=== PATIENT | female | born 1970 | race Caucasian/White ===

== ENCOUNTER 2017-03-26 20:50 | Emergency (ER) | payer MEDICAID ==
[~2017-03-26] VITALS: Wt 57.5 kg
[2017-03-26 23:07] LABS: ADD SCAN DIFF NO
[2017-03-26 23:09] LABS: ADD UMIC YES; URINE BILIRUBIN (Dip) NEGATIVE (NEGATIVE); URINE BLOOD (Dip) TRACE (NEGATIVE); URINE COLOR LT. YELLOW (YELLOW); URINE GLUCOSE (Dip) NEGATIVE (NEGATIVE); URINE KETONES (Dip) NEGATIVE (NEGATIVE); URINE LEUKOCYTE ESTERASE (Dip) NEGATIVE (NEGATIVE); URINE NITRITE (Dip) NEGATIVE (NEGATIVE); URINE TOTAL PROTEIN (Dip) NEGATIVE (NEGATIVE); URINE UROBILINOGEN (Dip) 0.2 E.U./dL (0.1-1.0)
[2017-03-26 23:11] LABS: ABNORMAL IP MESSAGE 1; BASOPHILS % 0.6 % (0.0-2.0); EOSINOPHILS # 0.3 10^3/ul (0.0-0.5); EOSINOPHILS % 4.7 % (0.0-7.0); HEMATOCRIT 30.5 % (37.0-47.0); LYMPHOCYTES # 2.5 10^3/ul (0.8-2.9); LYMPHOCYTES % 38.1 % (15.0-51.0); MEAN CORPUSCULAR HEMOGLOBIN 20.8 pg (29.0-33.0); MEAN CORPUSCULAR HGB CONC 29.5 g/dl (32.0-37.0); MEAN CORPUSCULAR VOLUME 70.6 fl (82.0-101.0); MEAN PLATELET VOLUME 9.7 fl (7.4-10.4); MONOCYTE # 0.5 10^3/ul (0.3-0.9); MONOCYTES % 6.8 % (0.0-11.0); NEUTROPHIL # 3.3 10^3/ul (1.6-7.5); NEUTROPHILS % 49.6 % (39.0-77.0); PLATELET COUNT 400 10^3/UL (140-415); RED BLOOD COUNT 4.32 10^6/ul (4.20-5.40); RED CELL DISTRIBUTION WIDTH 25.6 % (11.5-14.5); WHITE BLOOD COUNT 6.6 10^3/ul (4.8-10.8)
[2017-03-26 23:16] LABS: URINE RBCS 0-2 /HPF (0)
[2017-03-26 23:17] LABS: BACTERIA,URINE OCCASIONAL
[2017-03-26 23:30] LABS: ALBUMIN 4.1 g/dl (3.3-4.9); ALBUMIN/GLOBULIN RATIO 1.07; CALCIUM 9.5 mg/dl (8.4-10.2); CREATININE 0.86 mg/dl (0.44-1.00); POTASSIUM 3.6 mmol/L (3.5-5.1); TOTAL PROTEIN 7.9 g/dl (6.1-8.1)
[2017-03-26] MEDS ORDERED: FER325 PO (23:43)
--- NOTE | 2017-03-27 | ERD ---
ER Documentation Chief Complaint Date/Time DATE: 03/26/17 TIME: 23:55 Chief Complaint NUMBNESS TO HANDS/GENERALIZED WEAKNESS/FATIGUE HPI This is a 46-year-old female presents to the ER with multiple complaints. Patient states that she has had a past medical history of anemia for the last 2 years. She is now stating that she feels as if she has worsening anemia because she feels more weak. Patient states that she is also having bilateral hand numbness and tingling. She denies any pain to her upper extremities. She denies any weaknesses in her hands. Numbness is intermittent. She has not had any trauma to the area. She denies any headaches, loss of consciousness, lower extremity weakness. Patient denies any fevers or chills. She denies any recent cough or cold symptoms. She denies nausea vomiting or diarrhea. She denies urinary frequency or dysuria. ROS 12 point review of systems was done, all negative except per HPI. Medications Home Meds Active Scripts Ferrous Sulfate* (Ferrous Sulfate*) 325 Mg Tabec, 325 MG PO BID for 30 Days, TAB Prov:LEVI WATTS 03/26/17 Allergies Allergies: Coded Allergies: No Known Allergy (Unverified , 03/26/17) PMhx/Soc History of Surgery: Yes (c/s x3) Anesthesia Reaction: No Hx Neurological Disorder: No Hx Respiratory Disorders: No Hx Cardiac Disorders: No Hx Psychiatric Problems: No Hx Miscellaneous Medical Probl: No Hx Alcohol Use: No Hx Substance Use: No Hx Tobacco Use: No Physical Exam Vitals Vital Signs Date Time Temp Pulse Resp B/P Pulse Ox O2 Delivery O2 Flow Rate FiO2 03/26/17 20:54 99.3 69 18 163/77 97 Physical Exam GENERAL: The patient is well developed and appropriate for usual state of health , in no apparent distress. HEENT: Atraumatic. Conjunctivae are pink. Pupils equal, round, and reactive to light. Extraocular muscles are grossly intact. CHEST: Clear to auscultation bilaterally. There are no rales, wheezes or rhonchi. HEART: Regular rate and rhythm. No murmurs, clicks, rubs or gallops. EXTREMITIES: Equal pulses bilaterally. There is no peripheral clubbing, cyanosis or edema. No focal swelling or erythema. Full range of motion. Grossly neurovascularly intact. Patient is neurovascularly intact to bilateral hands to the radial ulnar and median nerves. Normal strength and sensations. Patient is not tender to palpation to the bilateral hands or wrists. NEURO: Alert and oriented. Cranial nerves II through XII are intact. Motor strength in all 4 extremities with 5/5 strength. Sensation grossly intact. Normal speech and gait. SKIN: The skin is warm and dry. Result Diagram: 03/26/17 2212 03/26/17 2212 Results 24 hrs Laboratory Tests Test 03/26/17 22:10 03/26/17 22:12 Urine Color LT. YELLOW Urine Clarity CLEAR Urine pH 5.5 Urine Specific Bartley 1.020 Urine Ketones NEGATIVE Urine Nitrite NEGATIVE Urine Bilirubin NEGATIVE Urine Urobilinogen 0.2 E.U./dL Urine Leukocyte Esterase NEGATIVE Urine Microscopic RBC 0-2/HPF Urine Microscopic WBC 0-2/HPF Urine Epithelial Cells OCCASIONAL Urine Bacteria OCCASIONAL Urine Hemoglobin TRACE Urine Glucose NEGATIVE% Urine Total Protein NEGATIVE White Blood Count 6.610^3/ul Red Blood Count 4.3210^6/ul Hemoglobin 9.0g/dl Hematocrit 30.5% Mean Corpuscular Volume 70.6fl Mean Corpuscular Hemoglobin 20.8pg Mean Corpuscular Hemoglobin Concent 29.5g/dl Red Cell Distribution Width 25.6% Platelet Count 00656^3/UL Mean Platelet Volume 9.7fl Neutrophils % 49.6% Lymphocytes % 38.1% Monocytes % 6.8% Eosinophils % 4.7% Basophils % 0.6% Nucleated Red Blood Cells % 0.0/100WBC Neutrophils # 3.310^3/ul Lymphocytes # 2.510^3/ul Monocytes # 0.510^3/ul Eosinophils # 0.310^3/ul Basophils # 0.010^3/ul Nucleated Red Blood Cells # 0.010^3/ul Sodium Level 139mmol/L Potassium Level 3.6mmol/L Chloride Level 108mmol/L Carbon Dioxide Level 23mmol/L Anion Gap 12 Blood Urea Nitrogen 18mg/dl Creatinine 0.86mg/dl Glucose Level 96mg/dl Calcium Level 9.5mg/dl Total Bilirubin 0.0mg/dl Direct Bilirubin 0.00mg/dl Indirect Bilirubin 0.0mg/dl Aspartate Amino Transf (AST/SGOT) 22IU/L Alanine Aminotransferase (ALT/SGPT) 28IU/L Alkaline Phosphatase 66IU/L Total Protein 7.9g/dl Albumin 4.1g/dl Globulin 3.80g/dl Albumin/Globulin Ratio 1.07 Procedures/MDM This is a 46-year-old female presents to the ER with multiple complaints. Patient's fatigue is likely due to her anemia, at this time patient is hemodynamically stable with no evidence of hypo-tension. Her hemoglobin is 9, not significant enough for blood transfusion. There is no evidence of leukocytosis to indicate infection. There is no evidence of electrolyte abnormalities. Etiology of Patient's bilateral hand numbness is unknown at this time. Patient however is neurovascularly intact to bilateral upper extremities. She does not have any weaknesses and has normal sensations. Patient is neurologically intact with no focal neurological deficits I doubt intracranial abnormality. Patient is afebrile and well-appearing. She will be sent home with iron. Patient's blood pressure was elevated, she was told to follow-up with her primary care doctor regarding this. [facility]. Patient does not have hypertensive emergency or urgency at this time. Should my medical decision making with the patient she understands and agrees with plan. Departure Diagnosis: Primary Impression: Anemia Condition: Stable Patient Instructions: Anemia, Iron Deficiency (Adult) [facility] Usted se roberson hecho un examen mdico de control que le indica que no est en kenrick condicin que requiera tratamiento urgente en el Departamento de Emergencia. Un estudio ms profundo y el tratamiento de caceres condicin pueden esperar sin ningn riesgo hasta que usted sea atendida/o en el consultorio de caceres mdico o kenrick cl linda. Es responsabilidad suya arreglar kenrick laurel para el seguimiento del talha. MANEJO DE CONDICIONES NO URGENTES EN EL FUTURO 1) Si usted tiene un mdico de atencin primaria: Usted debera llamar a caceres mdico de atencin primaria antes de venir al departamento de emergencia. Despus de las horas de consultorio, caceres doctor o caceres asociado/a est disponible por telfono. El mdico o enfermero de brittaney en el servicio telefnico puede asesorarle por brii medio para atender el problema, o talha contrario se puede programar kenrick laurel. 2) Si usted no tiene un mdico de atencin primaria: Llame al mdico o clnica de referencia que aparece abajo ministerio las horas de consultorio para hacer kenrick laurel para que le vean. CLINICAS: [facility] [phone] [facility] [phone] [facility] [phone] [place] [phone] [facility]. [facility] [phone] [id number] [facility]. [phone] [address] Additional Instructions: Llame al doctor MAANA y prema kenrick LAUREL PARA DENTRO DE 1-2 DUMAS.Dgale a la secretaria que nosotros le instruimos hacer esta laurel.Avise o llame si caceres condicin se empeora antes de la laurel. Regresa aqui si peor o no mejor. LEVI WATTS March 27, 2017 00:00
[2017-03-27 00:10] VITALS: BP 158/89; PULSE 60; RESP 16
== END 2017-03-27 00:11 | disposition home or self-care (01) ==
LOC: FTE 20:50
DX: D64.9 Anemia, unspecified (principal)
CPT/HCPCS: 36415; 80053; 81001; 85025; Z7502; 99283